=== PATIENT | male | born 1945 | race Caucasian/White ===

== ENCOUNTER 2021-10-05 00:30 | Inpatient (IN) | payer OTHER ==
[2021-10-05] MEDS ORDERED: NA CHLORIDE 0.9% 1,000 ML ONE ×2 (02:12→06:27)
[2021-10-05] MEDS ORDERED: ONDANSETRON 4 MG/2 ML VIAL ONE ×3 (02:12→17:18)
[2021-10-05] MEDS ORDERED: MORPHINE 4 MG/ML SYR ONE (02:12)
[2021-10-05] MEDS ORDERED: FAMOTIDINE 20 MG/2 ML VIAL IV ONE (02:12)
[2021-10-05 02:20] LABS: Absolute Lymphocytes (CBC) 1.3 K/uL (0.7-4.9); Hematocrit 41.5 % (39.6-49.0); Lymphocytes % 12.1 % (15.3-44.8); MPV 7.5 fL (7.6-11.3); RBC Red Blood Cell Count 4.15 M/uL (4.33-5.43)
[2021-10-05 02:27] LABS: Protime INR 1.12
[2021-10-05 02:54] LABS: Albumin 3.4 g/dL (3.4-5.0); Bilirubin Direct 0.2 mg/dL (0-0.2); Bilirubin Total 0.4 mg/dL (0.2-1.0); Magnesium 1.7 mg/dL (1.8-2.4); Potassium 3.5 mmol/L (3.5-5.1); Protein, Total 8.1 g/dL (6.4-8.2); Troponin High Sensitivity 9.6 pg/mL (<58.9)
[2021-10-05] MEDS ORDERED: NA CHLORIDE 0.9% 500 ML ONE (03:38)
[2021-10-05] MEDS ORDERED: MAGNESIUM SULFATE 1 gm IVPB 1 GM/100 ML BAG IV ONE (03:39)
[2021-10-05] MEDS ORDERED: METRONIDAZOLE 500mg IVPB 500 MG/100 ML BAG IV ONE (04:00)
[2021-10-05] MEDS ORDERED: CIPROFLOXACIN 400mg IV 400 MG/200 ML BAG IV ONE (04:00)
--- NOTE | 2021-10-05 05:50 | EDPHYS ---
Physician Documentation [facility] Name: Chantal Fields Age: 76 yrs Sex: Male : 1945 Arrival Date: 10/05/2021 Time: 00:36 Bed 15 Private MD: Vincent Paige ED Physician Matt Bautista HPI: 10/05 01:41 This 76 yrs old Male presents to ER via Ambulatory with complaints of joão Abdominal Pain, Nausea. 01:41 The patient presents to the emergency department with nausea, vomiting, that is joão intermittent. Onset: The symptoms/episode began/occurred 5 day(s) ago. Possible causes: unknown. The symptoms are aggravated by movement, pressure, The symptoms are alleviated by nothing. remaining still. Associated signs and symptoms: Pertinent positives: abdominal pain. Severity of symptoms: At their worst the symptoms were mild moderate in the emergency department the symptoms are unchanged. The patient has not experienced similar symptoms in the past. Historical: - Allergies: 00:50 PENICILLINS; vc1 00:50 niospan; vc1 00:50 Trilipix; vc1 00:50 Livalo; vc1 00:50 Edarbi; vc1 00:50 Aspirin; vc1 00:50 Metoprolol Tartrate; vc1 - Home Meds: 00:50 Levothroid 150 mcg Oral tab 1 tab once daily [Active]; clopidogrel 75 mg oral tab 1 tab vc1 once daily [Active]; Crestor 10 mg oral tab 1 tab once daily [Active]; losartan 50 mg oral tab 1 tab 2 times per day [Active]; fish kam-vmhxw-4-vit C-vit E 2,000-650-12 mg/2.5 gram oral elpk [Active]; nitroglycerin 0.4 mg SL subl 1 tab every 5 minutes [Active]; Co Q-10 200 mg oral cap daily [Active]; cilostazol 50 mg oral tab 1 tab 2 times per day [Active]; isosorbide mononitrate 30 mg Oral Tb24 1 tab twice a day [Active]; bisoprolol fumarate 5 mg oral tab 1 tab once daily [Active]; - PMHx: 00:55 Asbestos; Myocardial infarction; Hiatel Hernia; vc1 - PSHx: 00:55 Cholecystectomy; Cardiac stents; vc1 - Immunization history:: Adult Immunizations up to date, Client reports receiving the 2nd dose of the Covid vaccine, Flu vaccine is up to date. - Social history:: Smoking status: Patient/guardian denies using tobacco, but has a distant history of tobacco abuse. ROS: 01:42 Constitutional: Negative for fever, chills, and weight loss, Eyes: Negative for injury, joão pain, redness, and discharge, ENT: Negative for injury, pain, and discharge, Neck: Negative for injury, pain, and swelling, Cardiovascular: Negative for chest pain, palpitations, and edema, Respiratory: Negative for shortness of breath, cough, wheezing, and pleuritic chest pain, Back: Negative for injury and pain, : Negative for injury, bleeding, discharge, and swelling, MS/Extremity: Negative for injury and deformity, Skin: Negative for injury, rash, and discoloration, Neuro: Negative for headache, weakness, numbness, tingling, and seizure, Psych: Negative for depression, anxiety, suicide ideation, homicidal ideation, and hallucinations, Allergy/Immunology: Negative for hives, rash, and allergies, Endocrine: Negative for neck swelling, polydipsia, polyuria, polyphagia, and marked weight changes, Hematologic/Lymphatic: Negative for swollen nodes, abnormal bleeding, and unusual bruising. 01:42 Abdomen/GI: Positive for abdominal pain, nausea and vomiting, abdominal cramps, of the right upper quadrant and right lower quadrant. Exam: 01:42 Constitutional: This is a well developed, well nourished patient who is awake, alert, joão and in no acute distress. Head/Face: Normocephalic, atraumatic. Eyes: Pupils equal round and reactive to light, extra-ocular motions intact. Lids and lashes normal. Conjunctiva and sclera are non-icteric and not injected. Cornea within normal limits. Periorbital areas with no swelling, redness, or edema. ENT: Nares patent. No nasal discharge, no septal abnormalities noted. Tympanic membranes are normal and external auditory canals are clear. Oropharynx with no redness, swelling, or masses, exudates, or evidence of obstruction, uvula midline. Mucous membranes moist. Neck: Trachea midline, no thyromegaly or masses palpated, and no cervical lymphadenopathy. Supple, full range of motion without nuchal rigidity, or vertebral point tenderness. No Meningismus. Chest/axilla: Normal chest wall appearance and motion. Nontender with no deformity. No lesions are appreciated. Cardiovascular: Regular rate and rhythm with a normal S1 and S2. No gallops, murmurs, or rubs. Normal PMI, no JVD. No pulse deficits. Respiratory: Lungs have equal breath sounds bilaterally, clear to auscultation and percussion. No rales, rhonchi or wheezes noted. No increased work of breathing, no retractions or nasal flaring. Back: No spinal tenderness. No costovertebral tenderness. Full range of motion. Male : Normal genitalia with no discharge or lesions. Skin: Warm, dry with normal turgor. Normal color with no rashes, no lesions, and no evidence of cellulitis. MS/ Extremity: Pulses equal, no cyanosis. Neurovascular intact. Full, normal range of motion. Neuro: Awake and alert, GCS 15, oriented to person, place, time, and situation. Cranial nerves II-XII grossly intact. Motor strength 5/5 in all extremities. Sensory grossly intact. Cerebellar exam normal. Normal gait. Psych: Awake, alert, with orientation to person, place and time. Behavior, mood, and affect are within normal limits. 01:42 Abdomen/GI: Inspection: distension, Palpation: mild abdominal tenderness, moderate abdominal tenderness, in the right upper quadrant, Liver: no appreciated palpable abnormalities, tenderness, that is mild, Hernia: not appreciated. 02:47 ECG was reviewed by the Attending Physician. [facility] Vital Signs: 00:48 BP 164 / 101; Pulse 82; Resp 20; Temp 98; Pulse Ox 94% ; Weight 130.63 kg; Height 6 ft. vc1 2 in. (187.96 cm); Pain 8/10; 02:00 BP 169 / 81; Pulse 70; Resp 16; Pulse Ox 92% on R/A; Pain 0/10; fu 02:41 BP 179 / 85; Pulse 71; Resp 15; Pulse Ox 94% on 3 lpm NC; vc1 03:00 BP 174 / 92; Pulse 71; Resp 16; Pulse Ox 93% on 2 lpm NC; Pain 0/10; fu 05:26 BP 175 / 85; Pulse 72; Resp 19; Pulse Ox 95% on 2 lpm NC; fu 07:00 BP 114 / 97; Pulse 72; Resp 19 S; Pulse Ox 93% on 2 lpm NC; jg9 07:15 BP 160 / 93; Pulse 80; Resp 19; Pulse Ox 93% on 2 lpm NC; jg9 08:00 BP 166 / 97; Pulse 74; Pulse Ox 95% on 2 lpm NC; jg9 00:48 Body Mass Index 36.98 (130.63 kg, 187.96 cm) vc1 MDM: 01:30 Patient medically screened. [facility] 01:44 Differential diagnosis: Nonspecific abd pain, gastritis, cholecystitis, pancreatitis, joão appendicitis, diverticulitis. Data reviewed: vital signs, nurses notes, EMS record, lab test result(s), EKG, radiologic studies, CT scan, plain films. Data interpreted: pvc monitor: rate is 82 beats/min, rhythm is regular, Pulse oximetry: on room air is 94 %. Test interpretation: by ED physician or midlevel provider: ECG, plain radiologic studies. Counseling: I had a detailed discussion with the patient and/or guardian regarding: the historical points, exam findings, and any diagnostic results supporting the discharge/admit diagnosis, the presence of at least one elevated blood pressure reading (>120/80) during this emergency department visit, lab results, radiology results, the need for outpatient follow up. 05:50 Physician consultation: Jose Singh MD was called at 05:50, was contacted at 05:50, [facility] regarding consult, patient's condition, after a discussion of the case, a recommendation for transfer for higher level of care is made. 10/05 01:40 Order name: Basic Metabolic Panel; Complete Time: 03:20 [facility] 10/05 01:40 Order name: CBC with Diff; Complete Time: 02:41 [facility] 10/05 01:40 Order name: LFT's; Complete Time: 03:20 [facility] 10/05 01:40 Order name: Magnesium; Complete Time: 03:20 [facility] 10/05 01:40 Order name: NT PRO-BNP; Complete Time: 03:20 [facility] 10/05 01:40 Order name: PT-INR; Complete Time: 02:41 [facility] 10/05 01:40 Order name: Troponin HS; Complete Time: 03:20 [facility] 10/05 01:40 Order name: Lipase; Complete Time: 03:20 [facility] 10/05 01:40 Order name: SARS-COV-2 RT PCR (Document "Date of Onset" if Symptomatic); Complete Time: [facility] 03:20 10/05 06:37 Order name: Urine Dipstick-Ancillary; Complete Time: 06:54 EDMS 10/05 07:45 Order name: CBC with Automated Diff EDMS 10/05 07:45 Order name: CBC with Automated Diff EDMS 10/05 07:45 Order name: Comprehensive Metabolic Panel EDMS 10/05 07:45 Order name: Comprehensive Metabolic Panel EDMS 10/05 01:40 Order name: XRAY Chest (1 view) [facility] 10/05 03:00 Order name: Abdomen EDMS 10/05 07:45 Order name: Magnesium EDMS 10/05 07:45 Order name: Magnesium EDMS 10/05 07:45 Order name: Phosphorus EDMS 10/05 07:45 Order name: Phosphorus EDMS 10/05 01:40 Order name: EKG; Complete Time: 01:41 [facility] 10/05 01:40 Order name: Cardiac monitoring; Complete Time: 02:24 [facility] 10/05 01:40 Order name: EKG - Nurse/Tech; Complete Time: 02:24 [facility] 10/05 01:40 Order name: IV Saline Lock; Complete Time: 02:24 [facility] 10/05 01:40 Order name: Labs collected and sent; Complete Time: 02:24 [facility] 10/05 01:40 Order name: O2 Per Protocol; Complete Time: 02:24 [facility] 10/05 01:40 Order name: O2 Sat Monitoring; Complete Time: 02:24 [facility] 10/05 01:40 Order name: Urine Dipstick-Ancillary (obtain specimen); Complete Time: 07:05 [facility] 10/05 03:33 Order name: IV Saline Lock - Large Bore; Complete Time: 04:15 [facility] 10/05 07:45 Order name: CONS Physician Consult EDMT 10/05 07:45 Order name: NPO EDMS EC:47 Rate is 66 beats/min. Rhythm is regular. QRS [place] is Normal. NC interval is normal. QRS joão interval is normal. QT interval is normal. No Q waves. T waves are Normal. No ST changes noted. Clinical impression: NSR w/ Non-specific ST/T Changes and No evidence of ischemia. Interpreted by me. Reviewed by me. Administered Medications: 02:23 Drug: morphine 4 mg Route: IVP; Infused Over: 4 mins; Site: right forearm; fu 02:53 Follow up: Response: Pain is decreased fu 02:23 Drug: Zofran (Ondansetron) 4 mg Route: IVP; Site: right forearm; fu 03:23 Follow up: Response: No adverse reaction fu 02:24 Drug: NS 0.9% 1000 ml Route: IV; Rate: 125 ml/hr; Site: right forearm; fu 02:24 Drug: Pepcid (famotidine) 20 mg Route: IVP; Site: right forearm; fu 03:24 Follow up: Response: No adverse reaction fu 03:42 Drug: Magnesium Sulfate 1 grams Route: IVPB; Infused Over: 1 hrs; Site: right forearm; fu 04:58 Follow up: Response: No adverse reaction fu 03:43 Drug: NS 0.9% 500 ml Route: IV; Rate: bolus; Site: right forearm; fu 04:58 Follow up: Response: No adverse reaction; IV Intake: 500ml fu 04:15 Drug: Cipro (ciprofloxacin) 400 mg Volume: 200 ml; Route: IVPB; Infused Over: 60 mins; fu Site: left wrist; 07:29 Follow up: IV Status: Completed infusion; IV Intake: 200ml jg9 04:15 Drug: Flagyl (metroNIDAZOLE) 500 mg Volume: 100 ml; Route: IVPB; Rate: 200 ml/hr; fu Infused Over: 30 mins; Site: left wrist; 04:59 Follow up: Response: No adverse reaction fu 06:20 Drug: Meropenem 1 grams Route: IV; Rate: per protocol; Site: right forearm; fu 09:16 Follow up: IV Status: Completed infusion; IV Intake: 100ml jg9 06:20 Drug: NS 0.9% 1000 ml Route: IV; Rate: 1 bolus; Site: right forearm; fu 09:15 Follow up: IV Status: Completed infusion; IV Intake: 1000ml jg9 Disposition Summary: 10/05/21 07:21 Hospitalization Ordered Hospitalization Status: Inpatient Admission joão Provider: Nita Kelly cha Location: Telemetry/MedSurg (Inpatient) joão Condition: Fair(10/05/21 07:21) joão Problem: new(10/05/21 07:21) joão Symptoms: have improved(10/05/21 07:21) joão Bed/Room Type: Standard joão Room Assignment: joão Diagnosis - Volvulus - cecal(10/05/21 07:21) joão - Abdominal tenderness joão - Nausea(10/05/21 07:21) joão - Acute kidney failure, unspecified(10/05/21 07:21) joão - Other intestinal obstruction(10/05/21 07:21) joão - Pneumonia due to other specified bacteria - left lower lobe,[place] joão Discharge Instructions: - Discharge Summary Sheet jg9 - Abdominal Migraine, Pediatric jg9 - Nausea and Vomiting, Adult jg9 Forms: - Medication Reconciliation Form joão - SBAR form joão Signatures: Dispatcher [employer] EDMS Juan A Mann MD MD cha Umadhay, Felix, RN RN fu Colleen Chen RN RN vc1 Nadia Barr RN jg9 Corrections: (The following items were deleted from the chart) 03:00 01:45 Abdomen Pelvis W Con+CT.RAD.BRZ ordered. EDMT EDMS 05:57 05:49 to [facility] joão joão 06:12 05:57 to [facility] joão joão 07:17 05:49 [facility] joão joão 07:17 05:49 Higher level of care joão joão 07:17 05:49 Fair joão joão 07:17 05:49 new joão joão 07:17 05:49 have improved joão joão 07:17 05:49 Volvulus - Cecal joão joão 07:17 05:49 Abdominal pain, unspecified joão joão 07:17 05:49 Nausea joão joão 07:17 05:57 Acute kidney failure, unspecified joão joão 07:17 05:57 Other intestinal obstruction joão joão 07:17 06:12 to [facility] joão joão 07:17 06:12 Pneumonia, unspecified organism - lingula and left lower lobe joão joão
--- NOTE | 2021-10-05 05:50 | ER ---
Nurse's Notes [facility] Name: Chantal Fields Age: 76 yrs Sex: Male : 1945 Arrival Date: 10/05/2021 Time: 00:36 Bed 15 Private MD: Vincent Paige Diagnosis: Volvulus-cecal;Abdominal tenderness;Nausea;Acute kidney failure, unspecified;Other intestinal obstruction;Pneumonia due to other specified bacteria-left lower lobe,[place]ulia Presentation: 10/05 00:48 Chief complaint: Patient states: "I have been constipated lately I took some milk of vc1 magnesia and went to bed. I had a small bowel movement. When I woke up my stomach hurt extremely bad and I threw up several times.". Coronavirus screen: Vaccine status: Patient reports receiving the 2nd dose of the covid vaccine. Moderna plus 2 boosters At this time, the client does not indicate any symptoms associated with coronavirus-19. Ebola Screen: No symptoms or risks identified at this time. Initial Sepsis Screen: Does the patient meet any 2 criteria? No. Patient's initial sepsis screen is negative. Does the patient have a suspected source of infection? No. Patient's initial sepsis screen is negative. Risk Assessment: Do you want to hurt yourself or someone else? Patient reports no desire to harm self or others. Onset of symptoms is unknown. 00:48 Method Of Arrival: Ambulatory vc1 00:48 Acuity: FLORENTINO 3 vc1 Historical: - Allergies: 00:50 PENICILLINS; vc1 00:50 niospan; vc1 00:50 Trilipix; vc1 00:50 Livalo; vc1 00:50 Edarbi; vc1 00:50 Aspirin; vc1 00:50 Metoprolol Tartrate; vc1 - Home Meds: 00:50 Levothroid 150 mcg Oral tab 1 tab once daily [Active]; clopidogrel 75 mg oral tab 1 tab vc1 once daily [Active]; Crestor 10 mg oral tab 1 tab once daily [Active]; losartan 50 mg oral tab 1 tab 2 times per day [Active]; fish usi-rxrbx-4-vit C-vit E 2,000-650-12 mg/2.5 gram oral elpk [Active]; nitroglycerin 0.4 mg SL subl 1 tab every 5 minutes [Active]; Co Q-10 200 mg oral cap daily [Active]; cilostazol 50 mg oral tab 1 tab 2 times per day [Active]; isosorbide mononitrate 30 mg Oral Tb24 1 tab twice a day [Active]; bisoprolol fumarate 5 mg oral tab 1 tab once daily [Active]; - PMHx: 00:55 Asbestos; Myocardial infarction; Hiatel Hernia; vc1 - PSHx: 00:55 Cholecystectomy; Cardiac stents; vc1 - Immunization history:: Adult Immunizations up to date, Client reports receiving the 2nd dose of the Covid vaccine, Flu vaccine is up to date. - Social history:: Smoking status: Patient/guardian denies using tobacco, but has a distant history of tobacco abuse. Screenin:32 Abuse screen: Denies threats or abuse. Nutritional screening: No deficits noted. fu Tuberculosis screening: No symptoms or risk factors identified. Fall Risk None identified. Assessment: 01:31 General: Appears in no apparent distress. Behavior is calm, cooperative, appropriate fu for age, Denies fever. Pain: Complains of pain in abdomen Pain does not radiate. Pain currently is 8 out of 10 on a pain scale. Neuro: Level of Consciousness is awake, alert, obeys commands, Oriented to person, place, time, situation, Moves all extremities. Gait is steady, Speech is normal, Facial symmetry appears normal. Respiratory: Respiratory effort is even, unlabored, Respiratory pattern is regular. GI: Bowel sounds Abd is soft X 4 quads. 02:40 Reassessment: Patients oxygen saturation dropped to 87% placed on 3L NC increased to vc1 94%, no complaints of shortness of breath. 03:30 Reassessment: No changes from previously documented assessment. Patient and/or family fu updated on plan of care and expected duration. Pain level reassessed. Patient is alert, oriented x 3, equal unlabored respirations, skin warm/dry/pink. 04:00 Reassessment: No changes from previously documented assessment. Patient and/or family fu updated on plan of care and expected duration. Pain level reassessed. Patient is alert, oriented x 3, equal unlabored respirations, skin warm/dry/pink. 04:54 Reassessment: No changes from previously documented assessment. Patient is alert, fu oriented x 3, equal unlabored respirations, skin warm/dry/pink. asleep in bed. 07:00 Reassessment: Patient and/or family updated on plan of care and expected duration. Pain jg9 level reassessed. Patient is alert, oriented x 3, equal unlabored respirations, skin warm/dry/pink. Patient awake in bed no distress has no need at this time, VSS, updated on plan of care. 08:00 Reassessment: Samantha at bedside discussing surgical need, at this time patient is jg9 requesting to be transferred to another faciliy. 08:58 Reassessment: Patient has decided that he wants to stay here to have his jg9 surgery-provider notified. Vital Signs: 00:48 BP 164 / 101; Pulse 82; Resp 20; Temp 98; Pulse Ox 94% ; Weight 130.63 kg; Height 6 ft. vc1 2 in. (187.96 cm); Pain 8/10; 02:00 BP 169 / 81; Pulse 70; Resp 16; Pulse Ox 92% on R/A; Pain 0/10; fu 02:41 BP 179 / 85; Pulse 71; Resp 15; Pulse Ox 94% on 3 lpm NC; vc1 03:00 BP 174 / 92; Pulse 71; Resp 16; Pulse Ox 93% on 2 lpm NC; Pain 0/10; fu 05:26 BP 175 / 85; Pulse 72; Resp 19; Pulse Ox 95% on 2 lpm NC; fu 07:00 BP 114 / 97; Pulse 72; Resp 19 S; Pulse Ox 93% on 2 lpm NC; jg9 07:15 BP 160 / 93; Pulse 80; Resp 19; Pulse Ox 93% on 2 lpm NC; jg9 08:00 BP 166 / 97; Pulse 74; Pulse Ox 95% on 2 lpm NC; jg9 00:48 Body Mass Index 36.98 (130.63 kg, 187.96 cm) vc1 ED Course: 00:36 Patient arrived in ED. am2 00:36 Vincent Paige MD is Private Physician. am2 00:50 Triage completed. vc1 00:55 Arm band placed on right wrist. vc1 01:26 Edd Velásquez, JAMIE is Primary Nurse. fu 01:30 Juan A Mann MD is Attending Physician. joão 01:33 Patient has correct armband on for positive identification. Bed in low position. Call fu light in reach. Pulse ox on. NIBP on. 02:10 Inserted saline lock: 20 gauge in right antecubital area, using aseptic technique. fu Blood collected. 02:10 COVID swab sent to lab. fu 02:30 XRAY Chest (1 view) In Process Unspecified. EDMS 03:43 Abdomen In Process Unspecified. EDMS 04:00 Inserted saline lock: 20 gauge in left wrist, using aseptic technique. fu 05:51 Initiation of transfer with Josephine at [facility]. lp1 05:51 Dr. Mann initiated call for transfer to [facility], spoke to Josephine Raphael. wm 07:[address] Maria the hospitalist telecommunications line installer for [facility] with Dr. Mann for eb patient transfer consultation. 07:18 Nita Kelly MD is Hospitalizing Provider. joão 07:27 transfer cancelled to [facility] due to Dr. Jaime the GI telecommunications line installer for [facility] not eb accepting the patient. per Dr. Maria the hospitalist says Dr. Nicholas says that he would not do anything from a GI stand point. Our surgeon should be able to handle it. 07:49 Attending Physician role handed off by Juan A Mann MD kdr 07:49 Matt Bautista MD is Attending Physician. kdr 07:52 reinitiated the transfer with [facility] at the request of the patient/. eb 08:21 administrative approval given by Yordy Tomas/ patient has been accepted to [facility]/ Dr. Maria has accepted the patient in transfer/ report to be called to [phone]. 08:[address] Hurd ([phone]) patient's doctor with Dr. Bautista for eb patient consultation. 08:49 initiated a transfer with Kishor from the [facility] at the request of Dr akbar Hurd and patient/ per Kishor they will have to decline the patient again due to being at capacity/ they will Let Dr. Hurd know again as well that they still do not have and beds at this time. 09:[address] [facility] at the request of the patient/ patient was advised by akbar Hurd that it would be better for him to stay here instead of being "shuffled" around. Yordy Tomas from the transfer center notified he will notify Dr. Maria. Administered Medications: 02:23 Drug: morphine 4 mg Route: IVP; Infused Over: 4 mins; Site: right forearm; fu 02:53 Follow up: Response: Pain is decreased fu 02:23 Drug: Zofran (Ondansetron) 4 mg Route: IVP; Site: right forearm; fu 03:23 Follow up: Response: No adverse reaction fu 02:24 Drug: NS 0.9% 1000 ml Route: IV; Rate: 125 ml/hr; Site: right forearm; fu 02:24 Drug: Pepcid (famotidine) 20 mg Route: IVP; Site: right forearm; fu 03:24 Follow up: Response: No adverse reaction fu 03:42 Drug: Magnesium Sulfate 1 grams Route: IVPB; Infused Over: 1 hrs; Site: right forearm; fu 04:58 Follow up: Response: No adverse reaction fu 03:43 Drug: NS 0.9% 500 ml Route: IV; Rate: bolus; Site: right forearm; fu 04:58 Follow up: Response: No adverse reaction; IV Intake: 500ml fu 04:15 Drug: Cipro (ciprofloxacin) 400 mg Volume: 200 ml; Route: IVPB; Infused Over: 60 mins; fu Site: left wrist; 07:29 Follow up: IV Status: Completed infusion; IV Intake: 200ml jg9 04:15 Drug: Flagyl (metroNIDAZOLE) 500 mg Volume: 100 ml; Route: IVPB; Rate: 200 ml/hr; fu Infused Over: 30 mins; Site: left wrist; 04:59 Follow up: Response: No adverse reaction fu 06:20 Drug: Meropenem 1 grams Route: IV; Rate: per protocol; Site: right forearm; fu 09:16 Follow up: IV Status: Completed infusion; IV Intake: 100ml jg9 06:20 Drug: NS 0.9% 1000 ml Route: IV; Rate: 1 bolus; Site: right forearm; fu 09:15 Follow up: IV Status: Completed infusion; IV Intake: 1000ml jg9 Medication: 04:57 VIS not applicable for this client. fu Intake: 04:58 IV: 500ml; Total: 500ml. fu 07:29 IV: 200ml; Total: 700ml. jg9 09:15 IV: 1000ml; Total: 1700ml. jg9 09:16 IV: 100ml; Total: 1800ml. jg9 Outcome: 05:49 ER care complete, transfer ordered by . joão 07:21 Decision to Hospitalize by Provider. joão 10:23 Patient left the ED. jg9 Signatures: Dispatcher [employer] EDJuan A Buitrago MD MD cha Rittger, Kevin, MD MD kdr Pena, Laura, RN RN lp1 Alyssa Tomas Felix, RN RN Alisson Mesa Wendy wm Gilmore, Jennifer RN RN jg9 Colleen Chen RN RN vc1 Corrections: (The following items were deleted from the chart) 04:16 04:15 Inserted saline lock: 20 gauge in left wrist, using aseptic technique. [facility]
[2021-10-05] MEDS ORDERED: NA CHLORIDE 0.9% 100 ML ONE (06:27)
[2021-10-05] MEDS ORDERED: Meropenem 1000 MG/VIAL IV ONE (06:27)
[2021-10-05 06:37] LABS: Urine Blood Trace-lysed (Negative); Urine Glucose Negative (Negative); Urine Protein 3+ (Negative); Urine Specific Gravity >=1.030 (1.005-1.030); Urine pH 5.5 (5.0-7.0)
[2021-10-05] MEDS ORDERED: ACETAMINOPHEN 500 MG TAB PO PRN (07:41)
[2021-10-05] MEDS ORDERED: ONDANSETRON 4 MG/2 ML VIAL IV PRN (07:41)
[2021-10-05] MEDS ORDERED: NA CHLORIDE 0.9% 1,000 ML IV SCH (08:00)
[2021-10-05] MEDS ORDERED: CIPROFLOXACIN 400mg IV 400 MG/200 ML BAG IV SCH ×2 (09:00→21:00)
[2021-10-05] MEDS ORDERED: ENOXAPARIN 30 MG/0.3 ML SQ SCH (09:00)
[2021-10-05 09:35] VITALS: BMI 36.9
--- NOTE | 2021-10-05 09:38 | P.HP ---
Certification for Inpatient Patient admitted to: Inpatient (00:48 BP 164 / 101; Pulse 82; Resp 20; Temp 98; Pulse Ox 94% ; Weight 130.63 kg; Height 6 ft. vc1) With expected LOS: >2 Midnights Patient will require the following post-hospital care: None Practitioner: I am a practitioner with admitting privileges, knowledge of patient current condition, hospital course, and medical plan of care. Services: Services provided to patient in accordance with Admission requirements found in Title 42 Section 412.3 of the Code of Federal Regulations Patient History Date of Service: 10/05/21 Reason for admission: Cecal Volvulus History of Present Illness: Mr. Fields is a pleasant 76-year-old male who has a past medical history of coronary artery disease complicated by prior myocardial infarction s/p multiple coronary stents and CABG, peripheral vascular disease, hypertension, dyslipidemia, hypothyroidism, and benign prostatic hyperplasia who presents to [facility] Emergency Department for abdominal pain. He reports that, over the last 4-5 days, he has been experiencing progressively worsening abdominal pain. He states that the pain is generalized, but centered around periumbilical region. He describes the pain as a sharp and nonradiating. Over the last 1-2 days, he has had worsening abdominal distention. He denies any obvious inciting or alleviating factors. He grades the pain a 10/10 in severity. He has tried taking acetaminophen and milk of magnesia, without alleviation of his symptoms. His last bowel movement was two days ago. On review of systems, he reports nausea, but denies any fevers, chills, headaches, dizziness, syncope, weakness, chest pain, palpitations, shortness of breath, wheezing, cough, vomiting, diarrhea, constipation, hematochezia, melena, dysuria, hematuria, myalgia, or any other symptoms. He presented to the Emergency Department for further evaluation. Upon presentation, his vital signs were stable. His laboratory studies were notable for a creatinine of 1.68 (basleline unknown), a glucose of 133, and a magnesium of 1.7. Chest x-ray and CT abdomen/pelvis were performed, but formal reads are pending. There appears to be a cecal volvulus on the CT. There is also concern for a left lower lobe pneumonia on chest x-ray. General Surgery was consulted, and there are plans for surgery today. In the Emergency Department, he was given morphine, ondansetron, famotidine, magnesium sulfate, ciprofloxacin, metronidazole, meropenem, and 2 L normal saline. He was admitted to the General Internal Medicine service for further evaluation. Allergies metoprolol Allergy (Mild, Verified 10/05/21 09:27) Itching aspirin Allergy (Unknown, Verified 10/05/21 09:22) Itching azilsartan [From Edarbi] Allergy (Unknown, Verified 10/05/21 09:22) Itching choline fenofibrate [From Trilipix] Allergy (Unknown, Verified 10/05/21 09:22) Itching Penicillins Allergy (Unknown, Verified 10/05/21 09:22) Itching pitavastatin [From Livalo] Allergy (Unknown, Verified 10/05/21 09:22) Itching niospan Allergy (Unknown, Uncoded 10/05/21 09:22) Itching Home medications list reviewed: Yes Home Medications: Clopidogrel Bisulfate [Plavix] 1 tab PO DAILY 10/05/21 Diphenhydramine HCl [Benadryl Allergy] 1 tab PO PRN 10/05/21 Docusate Sodium 100 mg PO BID 10/05/21 Fish Oil/Dha/Epa [Fish Oil 1,200 mg Fish Oil] 1,400 mg PO DAILY 10/05/21 Isosorbide Mononitrate [Isosorbide Mononitrate ER] 1 tab PO BID 10/05/21 Levothyroxine Sodium [Levothyroxine] 150 mg PO DAILY 10/05/21 Losartan Potassium [Cozaar] 1 tab PO BID 10/05/21 Nitroglycerin 0.4 mg PO PRN PRN 10/05/21 Lorane-3 Fatty Acids [Lorane-3] 900 mg PO DAILY 10/05/21 Rosuvastatin [Crestor*] 1 tab PO DAILY 10/05/21 Simethicone [Gas Relief] 125 mg PO PRN PRN 10/05/21 Ubidecarenone [Co Q-10] 1 cap PO DAILY 10/05/21 bisoproloL fumarate [Zebeta*] 1 tab PO DAILY 10/05/21 cilostazoL [Cilostazol] 1 tab PO BID 10/05/21 - Past Medical/Surgical History Has patient received pneumonia vaccine in the past: Yes (04/27/2010. Prevnar 07/31/2015) Diabetic: Yes -: Coronary artery disease -: Peripheral vascular disease -: Hypertension -: Dyslipidemia -: Benign prostatic hyperplasia -: Heart catheterization (August 2012) -: Coronary artery bypass graft (September 24, 2012) -: Heart catheterization (September 23, 2013) -: Heart catheterization with PCI (March 21, 2014) -: Heart catheterization with PCI (February 12, 2016) -: Heart catheterization (September 23, 2016) -: Colonoscopy (October 05, 2017) -: Cholecystectomy (August 26, 2018) - Family History Family History: Reviewed- Non-Contributory - Social History Smoking Status: Former smoker Alcohol use: No CD- Drugs: No Review of Systems General: Unremarkable Eyes: Unremarkable ENT: Unremarkable Respiratory: Unremarkable Cardiovascular: Unremarkable Gastrointestinal: Nausea, Abdominal Pain, Distention Genitourinary: Unremarkable Musculoskeletal: Unremarkable Integumentary: Unremarkable Neurological: Unremarkable Lymphatics: Unremarkable Physical Examination - Vital Signs Blood Pressure: 175/85 Pulse: 72 Respirations: 19 Pulse Ox (%): 95 - Physical Exam General: Alert, In no apparent distress, Oriented x3 HEENT: Atraumatic, Mucous membr. moist/pink, EOMI, Sclerae nonicteric Neck: Supple, 2+ carotid pulse no bruit, Without JVD or thyroid abnormality Respiratory: Clear to auscultation bilaterally, Normal air movement Cardiovascular: Normal pulses, Regular rate/rhythm, Normal S1 S2, No gallops, No rubs, No murmurs, Edema (2+ bilaterally) Capillary refill: <2 Seconds Gastrointestinal: Hypoactive, No rebound, Distended, Guarding Integumentary: No rashes Neurological: Normal speech, Normal affect - Studies Laboratory Data (last 24 hrs) 10/05/21 02:00: PT 12.4, INR 1.12 10/05/21 02:00: WBC 10.4, Hgb 13.9, Hct 41.5, Plt Count 240 10/05/21 02:00: Sodium 139, Potassium 3.5, BUN 20 H, Creatinine 1.68 H, Glucose 133 H, Magnesium 1.7 L, Total Bilirubin 0.4, AST 14 L, ALT 20, Alkaline Phosphatase 82, Lipase 201 Assessment and Plan - Problems (Diagnosis) (1) Volvulus Current Visit: Yes Status: Acute - Plan # Cecal Volvulus - Admit to Medicine - General Surgery consulted and Dr. Singh notified by Dr. Bautista - recommendations appreciated - Recommends exploratory laparotomy with right hemicolectomy - Continue antibiotics for now - Lactated Ringers' at 100 mL/hr - For pain: - Acetaminophen 650 mg PO q6hr PRN mild-moderate pain - Morphine 2 mg IV q4hr PRN severe pain - For nausea: - Ondansetron 4 mg IV q6hr PRN nausea/vomiting - NPO - Pre-operative labs ordered: - INR = 1.12 - Type & screen - COVID-19 swab = negative # Left lower lung opacity, concern for community-acquired pneumonia There was concern for pneumonia in the ED, for which he received meropenem - He does not report any respiratory symptoms at this time, but is on 2 L nasal cannula for comfort - Chest x-ray report is pending - Continue ciprofloxacin + metronidazole, but hold meropenem for now - Encouraged incentive spirometry # Elevated Creatinine - Acute Kidney Injury vs Chronic Kidney Disease Stage III - Creatinine = 1.68 (baseline creatinine unknown) - Urinalysis = trace blood, proteinuria IV fluids as mentioned above - Monitor creatinine and urine output If worsening, obtain renal ultrasound Renally dose medications # Coronary Artery Disease complicated by prior myocardial infarction s/p multiple coronary stents and CABG # Peripheral Vascular Disease # Hypertension # Dyslipidemia - Hold home clopidogrel, rosuvastatin, losartan, cilostazol, isosorbide mononitrate, bisoprolol while NPO # Hypothyroidism - Hold home levothyroxine while NPO Discharge Plan: Home Plan to discharge in: Greater than 2 days - Advance Directives Does patient have a Living Will: No Does patient have a Durable POA for Healthcare: No - Code Status/Comfort Care Code Status Assessed: Yes Code Status: Full Code Physician Review: Patient Assessed, Agree with Above Assessment and Plan
--- NOTE | 2021-10-05 10:07 | CON ---
Date of Consultation: 10/05/2021 Time Seen: At approximately 7 a.m. Brief History Of Present Illness: The patient is a 76-year-old male, who presents with clare roximately 5-day history of abdominal pain. He states that he has not had similar episodes before in the past. He had noticed the pain got progressively worse over the past few days. He has seen his mixing operator in [facility] yesterday and continued to have pain. He states that he did not b elieve that this was cardiac type pain, which he has experienced before in the past. He noted that h e had some abdominal distention occurring over the past 2-3 days. His last bowel movement was 2 days ago. He states that he has not passed gas or had a bowel movement yesterday or today. Prior to taylor t, he did have small bowel movements and was passing minimal gas. He took some milk of magnesia thin guicho he is simply constipated that did not help his symptoms at all. He has only had 1 episode of na usea, vomiting by his report. He states that since being brought to the ER, his pain got significant ly better after medication was administered, but the reason for his coming to the hospital is progres sive worsening of abdominal pain, primarily in the midline area. Past Medical History: Significant for hypertension, coronary artery disease, asbestosis, myocardial infarction, hiatal hernia. Past Surgical History: Includes cholecystectomy, CABG in 2015, multiple cardiac stents after CABG. He states he has had stent occlusions requiring recent re-intervention with angioplasty and repeat st enting of coronary arteries. His last coronary intervention was several years ago. He is maintained on Plavix currently for blood thinner. Allergies: INCLUDE PENICILLIN, NIASPAN, TRILIPIX, LIVALO, EDARBI, ASPIRIN, METOPROLOL. Home Medications: Include Levothroid, Plavix 75 daily, Crestor, losartan, omega-3 fish oil, nitrogly cerin, Coenzyme Q10, , isosorbide mononitrate, and bisoprolol. Social History: He currently denies smoking. Did have a positive tobacco use history in the past. Denies alcohol or recreational drug use. Review of Systems: Ten-point review of systems other than HPI, he denies. Physical Examination: Vital Signs: At the time of my examination; his blood pressure was 164/101, pulse 82, respiratory ra te 20, temperature 98.0, pulse ox is 96% on room air. General: He is awake, alert, and oriented. Psychiatric: He is appropriate and conversive. HEENT: He is normocephalic. His sclerae are anicteric. His mucous membranes are moist. His oropha rynx is clear. Neck: Supple without JVD. Overall Appearance: He is in no apparent distress. He appears comfortable during the examination. Chest: Normal expansion and excursion. Cardiovascular: Regular rate and rhythm. He has a midline well-healed scar from previous CABG surge ry. Abdomen: Obese, soft with mild midline and right-sided abdominal tenderness. There is tympanic reso nance to his abdomen. There is an umbilical hernia palpable, which is reducible. There is no focal peritonitis. Extremities: No clubbing, cyanosis, or edema in the upper extremities. Lower extremities; he has 1+ edema. Laboratory Data: He had a laboratory exam, which revealed a white blood cell count of 10.4, hemoglob in is 13.9, hematocrit 41.5, platelet count was 240, neutrophils 78%. His PT 12.4, INR 1.12. Sodium 139, potassium 3.5, chloride 105, carbon dioxide 24, BUN 20, creatinine 1.68, glucose is 133, calciu m is 9.1, magnesium 1.7. Total bilirubin 0.4, direct bilirubin 0.2, AST 14, ALT 20, alkaline phospha tase is 82. His lipase is 201. His COVID was negative. He had imaging, which included a CT of the abdomen and pelvis, which was read by the night radiologist as a cecal bascule causing bowel obstruct ion. Assessment And Plan: This is a 76-year-old male, who presents with a cecal volvulus. 1.I have recommended exploratory laparotomy, right hemicolectomy, and indicated procedures. I have explained the risks, benefits, and alternatives of this plan including, but not limited to increased bleeding risks as the patient is currently on a blood thinner, infection, need for further operations , injury to intestines, heart attack, stroke, trouble related to anesthetics, possible need for colos katie creation which can be permanent in some situations, blood clots, and other unforeseen complicati ons. 2.Continue IV fluid hydration. 3.Antibiotic coverage. 4.The patient has requested transfer to [facility] and [facility] [place] or a [facility] area because he feels that he would be better served at a "not so small hospital" as he states he has had a bad experience before at [facility], [place] and [facility] her small facilities before in the past and as such has requested to have surgery at a different faci lity and prefers not to have surgery at this institution. I have explained that we can attempt to in itiate transfer based on his preference; however, I will book the patient for exploratory laparotomy today. I have explained that there was currently a case booked for the same for today and if by the time that case is completed, we cannot have a transfer initiated that I highly have recommended. He agreed to proceed with exploratory laparotomy at this time at this institution. The patient states h e will reconsider at this point, but has requested a transfer as described above to a [facility]. Therefore, I spoke to the ER staff who will initiate attempts to transfer the patient; [facility], if unsuccessful in the next few hours, I have recommended surgery at our institution. Thank you for this interesting consult. CHINYERE/MONTY Voice ID: [id number] Report ID: [id number]
[2021-10-05] MEDS ORDERED: Ringers Lactate 1,000 ML IV ONE (10:49)
[2021-10-05] MEDS ORDERED: ACETAMINOPHEN 325 MG TABLET PO PRN (11:14)
[2021-10-05] MEDS ORDERED: METRONIDAZOLE 500mg IVPB 500 MG/100 ML BAG IV SCH ×3 (12:00→17:00)
[2021-10-05] MEDS ORDERED: Ringers Lactate 1,000 ML IV SCH (12:00)
[2021-10-05] MEDS ORDERED: LIDOCAINE 2% MPF 5 ML VIAL ONE (12:59)
[2021-10-05] MEDS ORDERED: ROCURONIUM 50 MG/5 ML VIAL IV ONE (12:59)
[2021-10-05] MEDS ORDERED: propofoL 200 MG/20 ML VIAL IV ONE (12:59)
[2021-10-05] MEDS ORDERED: FENTANYL CITR 100 MCG/2 ML ONE ×3 (13:00→14:46)
[2021-10-05] MEDS ORDERED: SUCCINYLCHOLINE 20 MG/ML (10 ML) IV ONE (13:07)
[2021-10-05] MEDS ORDERED: BUPIVACAINE 0.25% PF 30 ML VIAL ONE (13:14)
[2021-10-05] MEDS ORDERED: dexAMETHasone 10 MG/ML VIAL ONE (13:56)
[2021-10-05] MEDS ORDERED: LABETALOL 20 MG/4ML SYRINGE IV ONE (14:05)
[2021-10-05] MEDS ORDERED: MORPHINE 10 MG/ML VIAL ONE (15:38)
[2021-10-05] MEDS ORDERED: GLYCOPYRROLATE 0.2 MG/ML SYR ONE ×2 (16:02)
--- NOTE | 2021-10-05 16:07 | P.OP ---
Preoperative diagnosis: Cecal Bascule Volvulus Postoperative diagnosis: Cecal Bascule Volvulus Primary procedure: Exploratory Laparotomy Secondary procedure: RIGHT Hemicolectomy with primary ileo-colic anastamosis Anesthesia: GETA Estimated blood loss: 150cc Specimen: RIGHT colon Findings: Cecal Volvulus, multiple ventral abdominal hernias with adipose, adhesions Complications: None Drain(s): Nasogastric, Urinary catheter Transferred to: Recovery Room Condition: Good
[2021-10-05] MEDS ORDERED: NEOSTIGMINE 1 MG/ML -10 ML VIAL ONE (16:17)
[2021-10-05] MEDS: HYDROMORPHONE HCL 1 MG/ML INJ ONE ×2 (16:24→16:30)
[2021-10-05] MEDS ORDERED: GLUCAGON 1 MG/VIAL IM PRN (16:27)
[2021-10-05] MEDS ORDERED: D50W 25 GM/50 ML SYRINGE IV PRN (16:27)
[2021-10-05] MEDS: LABETALOL 20 MG/4ML SYRINGE IV ONE ×4 (16:30→17:16)
[2021-10-05] MEDS: INSULIN -REGULAR HUMAN 50 UNIT/0.5 ML ML SQ SCH ×2 (16:30→21:00)
[2021-10-05] MEDS ORDERED: HYDROMORPHONE HCL 1 MG/ML INJ ONE (17:00)
--- NOTE | 2021-10-05 17:30 | RAD REPORT ---
EXAM DESCRIPTION: RAD - Abdomen 1 View (KUB) - 10/05/2021 5:19 pm CLINICAL HISTORY: s/p NGT placement COMPARISON: Abdomen Pelvis Wo Contrast dated 10/05/2021 FINDINGS: The NG tube likely terminates in the patient's hiatal hernia above the diaphragm. Sternoto my. IMPRESSION: The NG tube tip terminates in the gastric portion of the patient's hiatal hernia, above the diaphragm.
[2021-10-05] MEDS: Levofloxacin500mg IV 500 MG/100 ML BAG IV SCH (17:51)
[2021-10-05] MEDS: D5.45NS W/KCL 20MEQ 1,000 ML IV SCH (17:51)
[2021-10-05] MEDS: METRONIDAZOLE 500mg IVPB 500 MG/100 ML BAG IV SCH (18:30)
--- NOTE | 2021-10-05 19:58 | RAD REPORT ---
EXAM DESCRIPTION: CT - Abdomen Pelvis Wo Contrast - 10/05/2021 7:17 am CLINICAL HISTORY: 76 years Male Abdominal pain, acute, nonlocalized TECHNIQUE: Non contrast CT of the abdomen and pelvis with coronal and sagittal reformats. All CT sca ns at this facility use dose modulation, iterative reconstruction, and/or weight based dosing when ap propriate to reduce radiation dose to as low as reasonably achievable. COMPARISON: None. FINDINGS: Lower chest: Incompletely visualized patchy groundglass opacities in the lingula and left lower lobe. Moderate sized hiatal hernia. Abdomen/Pelvis: Liver: Unremarkable. Gallbladder: Status post cholecystectomy. Pancreas: Within normal limits. Spleen: Calcified granulomas are present. Kidney: No stone or hydronephrosis. Bilateral renal cysts, the largest is on the left measuring 3.6 x 3.4 cm. Adrenal glands: Within normal limits. Vascular structures: Mild atherosclerotic calcification of the aorta and its major branches. Bowel: Cecum is folded anteriorly and superiorly with resulting distention and air-fluid levels. Low Diverticulosis without inflammatory changes. Appendix: Normal. Peritoneum: No free fluid or free air. Lymph Nodes: No lymphadenopathy. Reproductive: Unremarkable. Urinary bladder: Unremarkable. Osseous structures: Multilevel degenerative changes. Soft tissues: Fat-containing left inguinal hernia. IMPRESSION: 1. 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 2. Additional findings as above. THIS REPORT CONTAINS FINDINGS THAT MAY BE CRITICAL TO PATIENT CARE: The findings were verbally discus sed via telephone conference with Juan A Mann MD on 10/05/2021 at 5:44 AM CDT. Electronically signed by: Giovanny Magaña MD 10/05/2021 5:48 AM CDT Due to temporary technical issues with the PACS/Fluency reporting system, reports are being signed by the in house radiologists without review as a courtesy to insure prompt reporting. The interpreting radiologist is fully responsible for the content of the report.
--- NOTE | 2021-10-05 21:20 | RAD REPORT ---
EXAM DESCRIPTION: RAD - Chest Single View - 10/05/2021 2:28 am CLINICAL HISTORY: ABDOMINAL DISTENTION COMPARISON: None. TECHNIQUE: XR CHEST 1 VIEW 10/05/2021 1:40 AM CDT FINDINGS: The heart is mildly enlarged. Sternotomy was performed. There is vague left basilar airspa ce disease. There may be a small left pleural effusion. There is no pneumothorax. There are no acute osseous findings. IMPRESSION: Possible left basilar pneumonia. Electronically signed by: Rodger Abad MD 10/05/2021 4:13 AM CDT Due to temporary technical issues with the PACS/Fluency reporting system, reports are being signed by the in house radiologists without review as a courtesy to insure prompt reporting. The interpreting radiologist is fully responsible for the content of the report.
[2021-10-06] MEDS: HYDROMORPHONE HCL 1 MG/ML INJ IV PRN ×4 (00:09→20:35)
[2021-10-06] MEDS: METRONIDAZOLE 500mg IVPB 500 MG/100 ML BAG IV SCH ×4 (00:09→17:02)
--- NOTE | 2021-10-06 02:15 | OP ---
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 Procedures Performed: 1.Exploratory laparotomy. 2.Right hemicolectomy with primary ileocolic anastomosis. 3.Intraabdominal adhesiolysis. 4.Primary abdominal closure. Estimated Blood Loss: 150 cc. Specimen: Right colon. Findings: 1.A large cecal bascule type volvulus with severe dilation of the colon to almost 15 cm. 2.Multiple ventral abdominal hernias containing adipose tissue. 3.Significant intraabdominal adhesions, particularly in the right upper quadrant as well as in the r ight lower quadrant. Complications: None immediate. Drains: Nasogastric and urinary catheter. Disposition: The patient transferred to recovery room in good condition. Procedure In Detail: After informed consent was obtained, the patient was prepped and draped in the usual sterile fashion. After adequate anesthesia was achieved, I made a midline laparotomy incision through an upper midline incision down through subcutaneous tissues with a 10 blade extending just be low the umbilicus. Electrocautery was used to dissect down through subcutaneous fat. I encountered multiple large perforating blood vessels in the adipose tissue, which were significantly pressurized, consistent with some degree of venous hypertension. These were ligated using the LigaSure device as they were quite large and under significant pressure when they were encountered incidentally. All o f these were controlled prior to entry into the abdomen. The anterior fascia was appreciated and ope mindy with electrocautery down to expose the peritoneum. The peritoneum was grasped, elevated and kenny ply entered with Metzenbaum scissors. I then completed the abdominal laparotomy incision under direc t visualization. At this point, I was encountered by the patient's enlarged dilated cecum. It had a n orientation consistent with a cecal volvulus. There was significant scar tissue and adhesions impi nging upon the cecum, keeping it in this position. There were various fibrous bands, which were take n down using the LigaSure device to allow for mobilization and delivery of the cecum into the midline . After this was performed using the LigaSure device, I proceeded to take down the white line of Karlie dt using electrocautery up to and around the hepatic flexure. I mobilized the colon around the hepat ic flexure to allow for appropriate anastomosis. At this point, after mobilizing the colon on the la teral aspect, I found an appropriate distal margin for the colon resection. I created a mesenteric w indow at this point using electrocautery. WIL 60 blue load was fired across the colon with good appr oximation of the tissues. I then proceeded to take the mesentery down with the LigaSure device, cont rolling bleeding quite effectively at this point. I then proceeded to mobilize the appendix, which w as fixed within the pelvis as well using a combination of blunt dissection as well as electrocautery. After mobilizing the appendix, I used this to help manipulate the colon as well and continue taking adhesions down including small bowel adhesions from the distal ileum, not the terminal ileum directl y. After the small bowel was mobilized at this point, I found an appropriate site for resection near the terminal ileum. Once again, a mesenteric window was created and the WIL 60 blue load was once a gain fired across this with good approximation of tissues. I proceeded to take the mesentery down sl ightly and I had some concern about possible ischemia to the remaining distal ileum and as such I opt ed to take a small additional segment of small bowel to ensure good vascularity for the anastomosis. As such, a mesenteric window was created approximately 3 cm to 4 cm proximal to the previous resecti on line. A mesenteric window was created once again with electrocautery and the WIL blue 60 was fire d once again across the distal small bowel at this point. Less than 10 cm in total of small bowel wa s removed throughout the procedure. At this point, the LigaSure device was used to take the mesenter y down following close to the edge of the colon and eventually the specimen was removed and sent off for pathologic examination without any spillage or leakage throughout. I then copiously irrigated th e patient's abdomen. We changed our gloves and proceeded to irrigate the patient's abdomen copiously in preparation for the anastomosis. At this point, I placed the small bowel and the residual colon in a [id number] orientation securing the proximal and distal aspect of the antimesenteric border of the small bowel to the tenia. I secured these with 2-0 nylon sutures in a proximal and distal aspec t to allow for the anastomosis to be created. At this point, a sterile protective field was brought around to prevent spillage of intestinal contents and at this point, I created an electrocautery ente rotomy into the small bowel. I then expanded it and inspected the lumen. The mucosa was pink and vi able without any hemorrhage. I then advanced the WIL 60 stapler into this lumen and proceeded to foc us on the colon as well at this point. I then created an enterotomy in the colon along the taenia in a similar fashion with electrocautery and dilated this with a hemostat, inspected the lumen and foun d the mucosa to be pink and viable. No bleeding was evident and I then placed the next component of the WIL stapler into the common channel, aligned it and fired the stapler through the common channel, creating a common channel. Stapler was then removed. I inspected the lumen and found it to be jameson nt and intact without any hemostatic maneuvers required. I then proceeded to close the defect with a 2-0 PDS suture in a John running suture. After this was secured, I then imbricated a second laye r closure using 3-0 silk sutures in an interrupted fashion in the Lembert type suture over the suture line. I then palpated the common channel and found it to be patent and at this point, the abdomen w as copiously irrigated once again and suctioned out until dry. We once again changed our gloves at t his point and proceeded to close the mesenteric defect using a 3-0 Vicryl suture in a running fashion . The abdomen was copiously irrigated once again, suctioned out until completely dry and no addition al hemostat was required. The omentum was then pulled down to protect the anastomosis and wrapped ar ound into the pelvis. After running the small bowel from the anastomosis to the ligament of Treitz, no small bowel defects were appreciated. I inspected the liver and this had a somewhat steatotic clare earance, but otherwise had no obvious gross abnormalities. I palpated the stomach and I was unable t o position the NG tube at the time of surgery as the patient has a fairly sizable hiatal hernia and a s such, we opted to close the patient's abdomen at this point. I then proceeded to place the abdomin al FISH in place and ran a #1 looped PDS suture in a running fashion to close the abdominal fascia an d the abdominal compartment en bloc with good apposition of tissues. I placed an additional securing reinforcing stitch in a [id number] at the inferior aspect/inferior pole of incision with #1 Heriberto ryl, after the FISH was removed and the suture was secured and tied down at this point. The abdomen was then palpated and had no defects at this point and was closed with good apposition. I then irrig ated the skin and subcutaneous fat and closed it with interrupted nati and a sterile dressing was placed over top. The patient tolerated the procedure well without evidence of any complication and t ransferred back in good condition. All counts were correct at the end of the case. CHINYERE/MONTY Voice ID: [id number] Report ID: [id number]
[2021-10-06] MEDS: D5.45NS W/KCL 20MEQ 1,000 ML IV SCH ×3 (04:36→17:00)
[2021-10-06 05:14] LABS: Absolute Lymphocytes (CBC) 0.9 K/uL (0.7-4.9); Hematocrit 39.8 % (39.6-49.0); Lymphocytes % 7.3 % (15.3-44.8); MPV 7.6 fL (7.6-11.3); RBC Red Blood Cell Count 3.94 M/uL (4.33-5.43)
[2021-10-06 05:35] LABS: Albumin 2.5 g/dL (3.4-5.0); Bilirubin Total 0.6 mg/dL (0.2-1.0); Magnesium 1.8 mg/dL (1.8-2.4); Phosphorus 1.5 mg/dL (2.5-4.9); Potassium 4.5 mmol/L (3.5-5.1); Protein, Total 6.9 g/dL (6.4-8.2)
[2021-10-06] MEDS: INSULIN -REGULAR HUMAN 50 UNIT/0.5 ML ML SQ SCH ×4 (07:30→20:34)
[2021-10-06] MEDS: ENOXAPARIN 40 MG/0.4 ML SQ SCH (08:54)
--- NOTE | 2021-10-06 11:11 | P.PN ---
Subjective Date of Service: 10/06/21 Chief Complaint: Cecal Volvulus Subjective: Improving (patient feels better, using incentive spirometry, not ambulatory, requests plunkett remain in place.) Physical Examination - Vital Signs Temperature: 97.4 F Blood Pressure: 145/70 Pulse: 83 Respirations: 16 Pulse Ox (%): 94 - Physical Exam General: Alert, In no apparent distress, Cooperative Respiratory: Clear to auscultation bilaterally, Diminished (IS ~ 1500cc) Cardiovascular: Regular rate/rhythm Gastrointestinal: Other (soft, mild appropriate TTP, ND, incision clean with nati in place. abdominal binder in place) Neurological: Normal speech Assessment And Plan - Current Problems (Diagnosis) (1) S/P right hemicolectomy Current Visit: Yes Status: Acute Plan: Gen: continue current pain regime with dilaudid CVS: continue current IV Hydration Pulm: incentive spirometry Q15 min with goal of 15cc/kg, respiratory therapy consulted GI: serial exams, nati out in 2 weeks, continue abdominal binder, patient has multiple ventral hernias, keep covered and change dressings daily FEN: continue IV hydration , electrolyte replacement protocol, will likely clamp trial NGT and DC soon then initiate feedings, patient has hiatal hernia where the NGT remains Renal: DC plunkett in AM, I have recommended removal today, patient requested one more day ID: continue antibiotic coverage with levaquin / flagyl. Prophylaxis: lovenox, SCD, ambulate with assist Placement: PT consulted for ambulation Endo: continue insulin sliding scale Physician Review: Patient Assessed, Agree with Above Assessment and Plan
--- NOTE | 2021-10-06 15:06 | P.PN ---
Subjective Date of Service: 10/06/21 Subjective: No new changes, No C/O voiced, Improving Patient was taken to the OR yesterday and had a hemicolectomy with anastomosis. Patient is doing well postoperatively. Still not moving any air at this time but symptoms are improving. Review of Systems 10-point ROS is otherwise unremarkable Physical Examination - Vital Signs Temperature: 97.9 F Blood Pressure: 154/64 Pulse: 83 Respirations: 16 Pulse Ox (%): 93 - Physical Exam General: Alert, In no apparent distress, Oriented x3, Other (NGT) HEENT: Atraumatic, PERRLA, EOMI Neck: Supple, JVD not distended Respiratory: Clear to auscultation bilaterally, Normal air movement Cardiovascular: Regular rate/rhythm, Normal S1 S2, No murmurs Gastrointestinal: Soft and benign, Non-distended, Other (incision is C/D/I), Absent bowel sounds, Tenderness Musculoskeletal: No clubbing, No swelling, No tenderness Neurological: Sensation intact, Cranial nerves 3-12 intact - Studies Medications List Reviewed: Yes Assessment & Plan - Problems (Diagnosis) (1) S/P right hemicolectomy Current Visit: Yes Status: Acute (2) Volvulus Current Visit: Yes Status: Acute - Plan Plan: 1. Continue with NG tube to suction 2. IV hydration 3. Pain control 4. Physical therapy evaluation 5. Strict blood pressure and blood sugar control 6. GI DVT prophylaxis Discharge Plan: Home Plan to discharge in: Greater than 2 days - Advance Directives Does patient have a Living Will: No Does patient have a Durable POA for Healthcare: No - Code Status/Comfort Care Code Status: Full Code Physician Review: Patient Assessed, Agree with Above Assessment and Plan Critical Care: No Time Spent Managing PTS Care (In Minutes): 35
[2021-10-06] MEDS ORDERED: PNEUMOCOCCAL VACCINE 0.5 ML IMVAC ONE (16:00)
[2021-10-06] MEDS: Levofloxacin500mg IV 500 MG/100 ML BAG IV SCH (16:20)
[2021-10-06] MEDS ORDERED: MAGNESIUM SULFATE 1 gm IVPB 1 GM/100 ML BAG IV ONE (17:07)
[2021-10-07] MEDS: METRONIDAZOLE 500mg IVPB 500 MG/100 ML BAG IV SCH ×4 (00:56→17:10)
[2021-10-07] MEDS: D5.45NS W/KCL 20MEQ 1,000 ML IV SCH ×4 (00:56→20:55)
[2021-10-07 04:47] LABS: Absolute Lymphocytes (CBC) 1.2 K/uL (0.7-4.9); Hematocrit 37.4 % (39.6-49.0); Lymphocytes % 10.4 % (15.3-44.8); MCV 98.8 fL (80-100); MPV 7.3 fL (7.6-11.3); RBC Red Blood Cell Count 3.79 M/uL (4.33-5.43)
[2021-10-07 05:02] LABS: Albumin 2.4 g/dL (3.4-5.0); Bilirubin Total 0.5 mg/dL (0.2-1.0); Potassium 3.9 mmol/L (3.5-5.1); Protein, Total 6.6 g/dL (6.4-8.2)
[2021-10-07] MEDS: HYDROMORPHONE HCL 1 MG/ML INJ IV PRN (05:18)
[2021-10-07] MEDS: INSULIN -REGULAR HUMAN 50 UNIT/0.5 ML ML SQ SCH ×4 (07:30→20:44)
[2021-10-07] MEDS ORDERED: LABETALOL 20 MG/4ML SYRINGE IV PRN (07:43)
[2021-10-07] MEDS ORDERED: D10W 125 ML IV PRN (07:51)
[2021-10-07] MEDS: ENOXAPARIN 40 MG/0.4 ML SQ SCH (08:16)
--- NOTE | 2021-10-07 13:37 | P.PN ---
Subjective Date of Service: 10/07/21 Chief Complaint: Cecal Volvulus Subjective: Improving (no acute issues, ambulatory, pain well controlled) Physical Examination - Vital Signs Temperature: 96.9 F Blood Pressure: 176/81 Pulse: 93 Respirations: 18 Pulse Ox (%): 91 - Physical Exam General: Alert, In no apparent distress, Obese, Other (combative and argumentative) HEENT: Mucous membr. moist/pink Respiratory: Clear to auscultation bilaterally, Other (incentive spirometry 1500cc) Cardiovascular: No edema, Normal pulses, Regular rate/rhythm Gastrointestinal: Other (soft, mild appropriate TTP, ND, no rebound, no guarding, nati in place, clean and dry incision) Integumentary: No rashes, No breakdown Neurological: Normal speech - Studies Medications List Reviewed: Yes Assessment And Plan - Current Problems (Diagnosis) (1) S/P right hemicolectomy Current Visit: Yes Status: Acute Plan: Gen: continue current pain regime with dilaudid CVS: continue current IV Hydration Pulm: incentive spirometry Q15 min with goal of 15cc/kg, respiratory therapy consulted GI: serial exams, nati out in 2 weeks, continue abdominal binder, patient has multiple ventral hernias, keep covered and change dressings daily FEN: continue IV hydration , electrolyte replacement protocol, clamp trial NGT and DC soon if tolearted then initiate feedings, patient has hiatal hernia where the NGT remains Renal: DC plunkett today, adequate urine output ID: continue antibiotic coverage with levaquin / flagyl. Prophylaxis: lovenox, SCD, ambulate with assist Placement: PT consulted for ambulation Endo: continue insulin sliding scale Physician Review: Patient Assessed, Agree with Above Assessment and Plan
[2021-10-07] MEDS ORDERED: PHENOL 1.4% ORAL SPRAY 180ML MM PRN (13:41)
--- NOTE | 2021-10-07 14:08 | P.PN ---
Subjective Date of Service: 10/07/21 Chief Complaint: Cecal Volvulus Subjective: No new changes (NG tube in place. Abdominal pain gradually improving. Requesting Baltazar catheter be removed.) Review of Systems General: Unremarkable Eyes: Unremarkable ENT: Unremarkable Respiratory: Unremarkable Cardiovascular: Unremarkable Gastrointestinal: Nausea, Abdominal Pain, Distention Genitourinary: Unremarkable Musculoskeletal: Unremarkable Integumentary: Unremarkable Neurological: Unremarkable Physical Examination - Vital Signs Temperature: 96.9 F Blood Pressure: 176/81 Pulse: 93 Respirations: 18 Pulse Ox (%): 91 - Physical Exam General: Alert, In no apparent distress, Oriented x3 HEENT: Atraumatic, Other (NG tube in place with brown gastric output) Neck: Without JVD or thyroid abnormality Respiratory: Clear to auscultation bilaterally, Normal air movement Cardiovascular: Normal pulses, Regular rate/rhythm, No gallops, No rubs, No murmurs Gastrointestinal: Hypoactive, No tenderness, No rebound, No guarding Musculoskeletal: No clubbing, No swelling Integumentary: No rashes Neurological: Normal speech, Normal tone, Normal affect - Studies Medications List Reviewed: Yes Assessment And Plan - Current Problems (Diagnosis) (1) Volvulus Current Visit: Yes Status: Acute - Plan # Cecal Volvulus s/p Right Hemicolectomy - Post-op day #2 - General Surgery consulted and spoke with Dr. Singh - recommendations appreciated - Baltazar catheter removed today - Plans to clamp NG tube - if no output, nausea/vomiting, or worsening abdominal pain within 6 hours, plan is to DC NG tube and start clear liquid diet - Continue antibiotics for now - D5W + 1/2 NS at 125 mL/hr - Continue pain and nausea symptomatic management # Left lower lung opacity, concern for community-acquired pneumonia There was concern for pneumonia in the ED, for which he received meropenem - He does not report any respiratory symptoms at this time, but is on 2 L nasal cannula for comfort - Continue levofloxacin - Encouraged incentive spirometry # Hypertensive Urgency - Started PRN labetalol for SBP > 160 mmHg # Acute Kidney Injury, improving - Creatinine = 1.68 -> 1.30 - Urinalysis = trace blood, proteinuria IV fluids as mentioned above - Monitor creatinine and urine output If worsening, obtain renal ultrasound Renally dose medications # Coronary Artery Disease 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
[2021-10-07] MEDS: Levofloxacin500mg IV 500 MG/100 ML BAG IV SCH (15:58)
[2021-10-07] MEDS ORDERED: NITROGLYCERIN 0.4 MG/TAB SL PRN (20:07)
[2021-10-07] MEDS ORDERED: SIMETHICONE 125 MG TAB PO PRN (20:07)
[2021-10-07] MEDS: ISOSORBIDE MONO SR 30 MG TAB PO SCH (20:52)
[2021-10-07] MEDS: LOSARTAN POTASSIUM 50 MG TABLET PO SCH (20:52)
[2021-10-07] MEDS: DOCUSATE NA 100 MG CAP PO SCH (20:52)
[2021-10-08] MEDS: METRONIDAZOLE 500mg IVPB 500 MG/100 ML BAG IV SCH ×4 (00:13→17:00)
[2021-10-08 04:14] LABS: Absolute Lymphocytes (CBC) 1.3 K/uL (0.7-4.9); Hematocrit 36.3 % (39.6-49.0); Lymphocytes % 11.6 % (15.3-44.8); MPV 7.6 fL (7.6-11.3); RBC Red Blood Cell Count 3.63 M/uL (4.33-5.43)
[2021-10-08 04:22] LABS: Phosphorus 1.1 mg/dL (2.5-4.9); Potassium 4.1 mmol/L (3.5-5.1)
[2021-10-08] MEDS: POTASS/SODIUM PHOSPHATE 1 PKT POWD.PACK PO SCH ×4 (05:00→07:00)
[2021-10-08] MEDS: D5.45NS W/KCL 20MEQ 1,000 ML IV SCH ×2 (06:00→17:06)
[2021-10-08] MEDS: INSULIN -REGULAR HUMAN 50 UNIT/0.5 ML ML SQ SCH ×4 (07:30→20:13)
--- NOTE | 2021-10-08 08:04 | EKG ---
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
[2021-10-08] MEDS ORDERED: POTASSIUM PHOS IN 0.9 % NACL 15 MMOL/250 ML BAG IV ONE (09:00)
[2021-10-08] MEDS: ROSUVASTATIN 10 MG TAB PO SCH (09:00)
[2021-10-08] MEDS: LOSARTAN POTASSIUM 50 MG TABLET PO SCH ×2 (09:35→20:14)
[2021-10-08] MEDS: ENOXAPARIN 40 MG/0.4 ML SQ SCH (09:35)
[2021-10-08] MEDS: ISOSORBIDE MONO SR 30 MG TAB PO SCH ×2 (09:35→20:14)
[2021-10-08] MEDS: DOCUSATE NA 100 MG CAP PO SCH ×2 (09:35→20:16)
[2021-10-08] MEDS: CLOPIDOGREL 75 MG TABLET PO SCH (09:35)
[2021-10-08] MEDS: LEVOTHYROXINE SOD 0.075 MG TAB PO SCH (09:40)
[2021-10-08] MEDS: BISOPROLOL 5 MG TABLET PO SCH (09:41)
--- NOTE | 2021-10-08 16:56 | P.PN ---
Subjective Date of Service: 10/08/21 Chief Complaint: Cecal Volvulus He did well overnight with the clamping trial and NG tube was removed. However, following administration of potassium replacement, he had 1 episode of emesis. This morning he reports that he is passing flatus, but has not had a bowel movement yet. Review of Systems General: Unremarkable Eyes: Unremarkable ENT: Unremarkable Respiratory: Unremarkable Cardiovascular: Unremarkable Gastrointestinal: Nausea, Vomiting, Abdominal Pain Genitourinary: Unremarkable Musculoskeletal: Unremarkable Integumentary: Unremarkable Neurological: Unremarkable Physical Examination - Vital Signs Temperature: 97.1 F Blood Pressure: 159/73 Pulse: 68 Respirations: 18 Pulse Ox (%): 95 - Physical Exam General: Alert, In no apparent distress, Oriented x3 HEENT: Atraumatic, Mucous membr. moist/pink Neck: Supple, Without JVD or thyroid abnormality Respiratory: Clear to auscultation bilaterally Cardiovascular: Regular rate/rhythm, Normal S1 S2, No gallops, No rubs, No murmurs Gastrointestinal: Hypoactive, Non-distended, No rebound, No guarding, Tenderness Musculoskeletal: No clubbing, No swelling Integumentary: No rashes Neurological: Normal speech, Normal tone, Normal affect - Studies Medications List Reviewed: Yes Assessment And Plan - Current Problems (Diagnosis) (1) Volvulus Current Visit: Yes Status: Acute - Plan # Cecal Volvulus s/p Right Hemicolectomy - Post-op day #3 - General Surgery consulted and spoke with Dr. Singh - recommendations appreciated - NG tube removed yesterday, but one episode of vomiting after potassium replacement - Remain on clear liquid diet for now and advance as tolerated - Continue antibiotics for now - D5W + 1/2 NS at 125 mL/hr - Continue pain and nausea symptomatic management # Left lower lung opacity, concern for community-acquired pneumonia There was concern for pneumonia in the ED, for which he received meropenem - He does not report any respiratory symptoms at this time, but is on 2 L nasal cannula for comfort - Continue levofloxacin - Encouraged incentive spirometry # Hypertensive Urgency - Resume home meds - PRN labetalol for SBP > 160 mmHg # Acute Kidney Injury, improving - Creatinine = 1.68 -> 1.30 -> 1.15 - Urinalysis = trace blood, proteinuria IV fluids as mentioned above - Monitor creatinine and urine output If worsening, obtain renal ultrasound Renally dose medications # Coronary Artery Disease 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
[2021-10-08] MEDS: Levofloxacin500mg IV 500 MG/100 ML BAG IV SCH (17:00)
[2021-10-09] MEDS: METRONIDAZOLE 500mg IVPB 500 MG/100 ML BAG IV SCH ×3 (00:37→13:07)
[2021-10-09] MEDS: D5.45NS W/KCL 20MEQ 1,000 ML IV SCH (00:42)
[2021-10-09 03:54] LABS: Absolute Lymphocytes (CBC) 1.3 K/uL (0.7-4.9); Hematocrit 35.9 % (39.6-49.0); Lymphocytes % 13.8 % (15.3-44.8); MCV 99.9 fL (80-100); MPV 7.6 fL (7.6-11.3); RBC Red Blood Cell Count 3.59 M/uL (4.33-5.43)
[2021-10-09 04:10] LABS: Magnesium 1.9 mg/dL (1.8-2.4); Phosphorus 1.3 mg/dL (2.5-4.9); Potassium 3.6 mmol/L (3.5-5.1)
[2021-10-09] MEDS: LEVOTHYROXINE SOD 0.075 MG TAB PO SCH (05:59)
[2021-10-09] MEDS: INSULIN -REGULAR HUMAN 50 UNIT/0.5 ML ML SQ SCH ×2 (07:30→11:30)
[2021-10-09] MEDS: DOCUSATE NA 100 MG CAP PO SCH (07:43)
[2021-10-09] MEDS: ROSUVASTATIN 10 MG TAB PO SCH (07:44)
[2021-10-09] MEDS ORDERED: POTASSIUM PHOS IN 0.9 % NACL 15 MMOL/250 ML BAG IV ONE (08:00)
[2021-10-09] MEDS: ENOXAPARIN 40 MG/0.4 ML SQ SCH (08:34)
[2021-10-09] MEDS: LOSARTAN POTASSIUM 50 MG TABLET PO SCH (08:34)
[2021-10-09] MEDS: CLOPIDOGREL 75 MG TABLET PO SCH (08:34)
[2021-10-09] MEDS: BISOPROLOL 5 MG TABLET PO SCH (08:34)
[2021-10-09] MEDS: ISOSORBIDE MONO SR 30 MG TAB PO SCH (08:34)
[2021-10-09 08:44] VITALS: O2SAT 95
[2021-10-09 12:04] VITALS: BP 144/66; TEMP 97.3
--- NOTE | 2021-10-09 14:02 | P.DS ---
Admission Date: 10/05/21 Discharge Date: 10/09/21 Disposition: ROUTINE DISCHARGE Discharge Condition: GOOD Reason for Admission: Cecal Volvulus Consultations: 1. General Surgery Procedures: 10/05/2021 - Right Hemicolectomy with primary Ileocolic Anastamosis - Problems (1) Volvulus Current Visit: Yes Status: Acute (2) Coronary artery disease Current Visit: Yes Status: Acute (3) Peripheral vascular disease Current Visit: Yes Status: Acute (4) Dyslipidemia Current Visit: Yes Status: Acute (5) Hypertension Current Visit: Yes Status: Acute (6) Hypothyroidism Current Visit: Yes Status: Acute (7) S/P right hemicolectomy Current Visit: Yes Status: Acute Hospital Course: Mr. Chantal Fields is a pleasant 76-year-old male who has a past medical history of coronary artery disease complicated by prior myocardial infarction s/p multiple coronary stents and CABG, peripheral vascular disease, hypertension, dyslipidemia, hypothyroidism, and benign prostatic hyperplasia who was admitted to the [facility] on 10/05/2021 for abdominal pain. Upon presentation, he was found to have findings concerning for a bowel obstruction/cecal volvulus. General Surgery was consulted, and Dr. Singh performed a right hemicolectomy with primary ileo-colic anastamosis. Postopera tively, he did fairly well and his diet was advanced slowly. He had one episode of emesis immediately following potassium replacement; however, he passed the nasogastric tube clamping trial and the tube was removed. He was then started on clear liquid diet and advanced to regular diet without any abdominal pain, nausea, or vomiting. He has been passing flatus and having bowel movements for the last 2 days. He is eager for discharge home and has been cleared by General Surgery once he is able to tolerate a full diet and pass a bowel movement. Of note, there was concern for left basilar pneumonia based on a chest x-ray; however, he never exhibited respiratory signs of pneumonia. Nevertheless, he completed a 5-day course of levofloxacin as an inpatient and reported no respiratory symptoms at discharge. On 10/09/2021, he was seen on rounds and deemed medically stable for discharge. He was discharged with instructions to schedule follow-up appointments with his PCP in 3-[address] Singh (General Surgery) in 2 weeks. He was given the opportunity to ask questions and reported no further questions. Furthermore, all questions were answered to the best of my ability. Today, I personally spent 20 minutes with Mr. Fields, of which greater than 50% of the time was spent in patient education, counseling, and coordination of care as described above. Vital Signs/Physical Exam: Temp Pulse Resp BP Pulse Ox 97.3 F 63 16 144/66 H 94 10/09/21 12:00 10/09/21 12:00 10/09/21 12:00 10/09/21 12:00 10/09/21 12:00 General: Alert, In no apparent distress, Oriented x3 HEENT: Atraumatic, Mucous membr. moist/pink Neck: Supple, Without JVD or thyroid abnormality Respiratory: Clear to auscultation bilaterally, Normal air movement Cardiovascular: No edema, Regular rate/rhythm, Normal S1 S2, No gallops, No rubs, No murmurs Gastrointestinal: Normal bowel sounds, Soft and benign, Non-distended, No rebound, No guarding, Tenderness (minimal near surgical site) Musculoskeletal: No clubbing, No swelling Integumentary: Other (mid-line abdominal surgical incision is clean, dry, and intact) Neurological: Normal speech, Normal tone, Normal affect Laboratory Data at Discharge: WBC 9.1 K/uL (4.3-10.9) D 10/09/21 03:03 Hgb 12.0 g/dL (13.6-17.9) L 10/09/21 03:03 Hct 35.9 % (39.6-49.0) L 10/09/21 03:03 Plt Count 264 K/uL (152-406) 10/09/21 03:03 PT 12.4 SECONDS (9.5-12.5) 10/05/21 02:00 INR 1.12 10/05/21 02:00 Sodium 137 mmol/L (136-145) 10/09/21 03:03 Potassium 3.6 mmol/L (3.5-5.1) 10/09/21 03:03 BUN 14 mg/dL (7-18) 10/09/21 03:03 Creatinine 1.15 mg/dL (0.55-1.3) 10/09/21 03:03 Glucose 114 mg/dL (74-106) H 10/09/21 03:03 Phosphorus 1.3 mg/dL (2.5-4.9) L - Phos was replaced this morning, repeat pending 10/09/21 03:03 Magnesium 1.9 mg/dL (1.8-2.4) 10/09/21 03:03 Total Bilirubin 0.5 mg/dL (0.2-1.0) 10/07/21 04:35 AST 29 U/L (15-37) 10/07/21 04:35 ALT 16 U/L (12-78) 10/07/21 04:35 Alkaline Phosphatase 58 U/L (45-117) 10/07/21 04:35 Lipase 201 U/L (73-393) 10/05/21 02:00 Home Medications: Clopidogrel Bisulfate [Plavix] 1 tab PO DAILY 10/05/21 Diphenhydramine HCl [Benadryl Allergy] 1 tab PO PRN 10/05/21 Docusate Sodium 100 mg PO BID 10/05/21 Fish Oil/Dha/Epa [Fish Oil 1,200 mg Fish Oil] 1,400 mg PO DAILY 10/05/21 Isosorbide Mononitrate [Isosorbide Mononitrate ER] 1 tab PO BID 10/05/21 Levothyroxine Sodium [Levothyroxine] 150 mg PO DAILY 10/05/21 Losartan Potassium [Cozaar] 1 tab PO BID 10/05/21 Nitroglycerin 0.4 mg PO PRN PRN 10/05/21 Honaker-3 Fatty Acids [Honaker-3] 900 mg PO DAILY 10/05/21 Rosuvastatin [Crestor*] 1 tab PO DAILY 10/05/21 Simethicone [Gas Relief] 125 mg PO PRN PRN 10/05/21 Ubidecarenone [Co Q-10] 1 cap PO DAILY 10/05/21 bisoproloL fumarate [Zebeta*] 1 tab PO DAILY 10/05/21 cilostazoL [Cilostazol] 1 tab PO BID 10/05/21 Physician Discharge Instructions: 1. Please schedule follow-up with PCP in 3-5 days - Will need to follow-up kidney cysts 2. Please schedule follow-up with Dr. Singh (General Surgery) in 2 weeks - Will need to follow-up hiatal and inguinal hernias Diet: [facility] Activity: No lifting more than 10 lbs Followup: Jose Singh MD [ACTIVE - CAN ADMIT] - 1-2 Weeks Vincent Paige MD [Primary Care Provider] - 2-3 Days
--- OUTSIDE RECORDS SUMMARY | 2021-10-23 06:12 | XMS REPORT | Continuity of Care Document ---
:1945 Author Organization [facility] t Address [address] [place] [address] Care Team Providers Name Role Phone Mary PICHARDO, Artur Primary Care Physician ARTUR HERNANDEZ Attending Clinician Unavailable Doctor Unassigned, Name Attending Clinician Unavailable Payers Payer Name Policy Type Policy Number Effective Date Expiration Date Erika PERAZA MANAGED [id number] 2021 MEDICARE PPO-FRANK 00:00:00 Problems Condition Condition Condition Status Onset Resolution Last Treating Co mments Source Name Details Category Date Date Treatment Clinician Date Leg edema Leg edema Disease Active Uni vers - ity of 00:00: [address] Acute Acute Disease Active Univers cholecysti cholecysti 08-22 it y of tis tis 00:00: [address] Branch Preop Preop Disease Active Univers cardiovasc cardiovasc -19 it y of ular exam [place] [facility] Ischemic Ischemic Disease Active Unive rs cardiomyop cardiomyop -19 it y of athy athy 00:00: [place] [address] Medical Branch Right Right Disease Active Overview: Univer s upper upper 5-19 Formattin ity of quadrant quadrant 00:00: g of this John as abdominal abdominal 00 note Medi tommie pain pain might be Branch different from the original. Added automatic ally from request for surgery [id number] Obesity Obesity Disease Active Univers (BMI (BMI 7-14 ity of 30-39.9) 30-39.9) 00:00: [place] 00 [facility] Hypothyroi Hypothyroi Disease Active U nivers d d 07-30 ity of 00:00: [place] 00 [facility] Essential Essential Disease Active Uni vers hypertensi hypertensi 07-30 it y of on on 00:00: [place] 00 [facility] Hyperchole Hyperchole Disease Active U nivers sterolemia sterolemia 07-30 it y of 00:00: [place] 00 Medical [facility] Asbestosis Asbestosis Disease Active U nivers 07-30 ity of 00:00: [place] 00 [facility] Coronary Coronary Disease Active Unive rs artery artery 07-30 ity of disease disease 00:00: [place] 00 Medical [facility] BPH BPH Disease Active Univers (benign (benign 07-30 ity of prostatic prostatic 00:[place] hypertroph hypertroph 00 Me dical y) y) Branch Allergies, Adverse Reactions, Alerts Allergy Allergy Status Severity Reaction(s) Onset Inactive Treating Comm ents Source Name Type Date Date Clinician PENICILL DRUG Active High Swelling Univer s IN INGREDI 07-30 ity of 00:00: [place] 00 [facility] Branch ASPIRIN DRUG Active Swelling Univers INGREDI 07-30 ity of 00:00: [place] 00 [facility] AZILSART DRUG Active Diarrhea Univer s AN INGREDI 07-30 ity of MEDOXOMI 00:00: [place] L 00 Medical Branch PITAVAST DRUG Active Other-Cmnt Univ ers ATIN INGREDI 07-30 ity of 00:00: [place] 00 Medical Branch METOPROL DRUG Active Other-Cmnt Univ ers OL INGREDI 07-30 ity of TARTRATE 00:00: [place] 00 Medical Branch NIACIN DRUG Active Swelling Univers INGREDI 07-30 ity of 00:00: [place] 00 Medical Branch PANTOPRA DRUG Active Other-Cmnt Univ ers ZOLE INGREDI 07-30 ity of 00:00: [place] 00 Medical Branch FENOFIBR DRUG Active Other-Cmnt Univ ers IC ACID 07-30 ity of (CHOLINE 00:00: [place] ) 00 Medical Branch Aspirin Propensi Active Swelling Of throat Un suresh ty to 07-30 ity of adverse 00:00: [place] reaction 00 Medical s Branch Azilsart Propensi Active Diarrhea Univ ers an ty to 07-30 ity of Medoxomi adverse 00:00: [place] l reaction 00 Medical s Branch Pitavast Propensi Active Other - See U nivers atin ty to comments 07-30 ity of adverse 00:00: [place] reaction 00 Medical s Branch Metoprol Propensi Active Other - See constipa t Univers ol ty to comments 07-30 ion ity of Tartrate adverse 00:00: [place] reaction 00 Medical s Branch Niacin Propensi Active Swelling Of hands Univ ers ty to 07-30 ity of adverse 00:00: [place] reaction 00 Medical s Branch Pantopra Propensi Active Other - See Bone greg n Univers zole ty to comments 07-30 hip and ity of adverse 00:00: back [place] reaction Medical s Branch Penicill Propensi Active Swelling Of throat U nivers in ty to 07-30 ity of adverse 00:00: [place] reaction 00 Medical s Branch Fenofibr Propensi Active Other - See Abdomina l Univers ic Acid ty to comments 07-30 pain ity of (Choline adverse 00:00: [place] ) reaction 00 Medical s Branch Social History Social Habit Start Date Stop Date Quantity Comments Source History SDPR University o f Alcohol Frequency [facility] edical Branch History [facility] University o f Alcohol Std [place] [facility] Drinks Branch History [facility] o f Alcohol Binge [place] [facility] al Branch Alcohol intake 2020-08-02 2020-08-02 0 /d University of 00:00:00 00:00:00 [facility] Tobacco use and 2015-07-31 2015-07-31 Former smokeless Uni versity of exposure 00:00:00 00:00:00 tobacco user [place] [facility]ica l Branch Alcohol Comment 2015-07-31 2015-07-31 occ Universit y of 00:00:00 00:00:00 [place] [facility] [place] History of 1993-07-30 Chews Tobacco University of tobacco use 00:00:00 [facility] Sex [birth year] Universit y of 00:00:00 00:00:00 [facility] Smoking Status Start Date Stop Date Source Ex-smoker 2015-07-31 00:00:00 2015-07-31 00:00:00 Universi ty of [facility] Medications Ordered Filled Start Stop Current Ordering Indication Dosage Frequency Signature Comments Components Source Medication Medication Date Date Medication? Clinician (SIG) Name Name LEVOTHYROXI Yes TAKE 1 Univ ers NE 150 mcg 5-17 TABLET BY ity of tablet 00:00: MOUTH [place] 00 EVERY DAY Medical IN THE Branch MORNING chlorzoxazo Yes [id number] 500mg Take 1 Univers ne 500 mg 4-30 tablet by ity o f tablet 00:00: mouth 3 [place] 00 (three) Medical times Branch daily as needed for Muscle Spasms. SIMETHICONE Yes 1{tbl} Take 1 Un suresh (GAS RELIEF 8-04 tablet by ity of ORAL) 11:21: mouth as [place] 20 needed. Medical Branch nitroglycer Yes .4mg Place 0.4 U nivers in 0.4 mg 8-04 mg under ity of sublingual 11:21: the [place] tablet 20 tongue. Medical Branch tamsulosin Yes [id number] .4mg Take 1 Univers 0.4 mg 24 8-04 9100 capsule by ity of hr capsule 00:00: mouth [place] 00 daily. Medical Branch losartan 50 Yes 50mg Take 50 mg Univers mg tablet 5-27 by mouth 2 ity of 00:00: (two) [place] 00 times Medical daily. Branch metoprolol Yes 50mg Take 50 mg U nivers succinate 6-18 by mouth 2 ity of XL (TOPROL 08:50: (two) [place] XL) 50 mg 19 times Medical 24 hr daily. Branch tablet coenzyme Yes 200mg Take 200 Univ ers Q10 (CO 6-18 mg by ity of Q-10) 100 08:50: mouth [place] mg softgel 19 daily. Medical Branch ISOSORBIDE Yes 30mg Take 30 mg U nivers ORAL 6-18 by mouth ity of 08:50: daily. [place] 19 Medical Branch PSYLLIUM Yes 1{dose} Take 1 Univ ers HUSK 6-18 Dose by ity of (METAMUCIL 08:50: mouth as [place] as ORAL) 19 needed. Medical Branch cilostazol Yes 50mg Take 50 mg U nivers 50 mg 4-07 by mouth 2 ity of tablet 00:00: (two) [place] 00 times Medical daily. Branch clopidogrel Yes 75mg Take 75 mg Univers (PLAVIX) 75 4-21 by mouth ity of mg tablet 00:00: daily. [place] 00 Medical Branch celecoxib Yes 200mg Take 200 Uni vers (CELEBREX) 4-14 mg by ity of 200 mg 00:00: mouth [place] capsule 00 daily. Medical Branch zolpidem Yes 5mg Take 5 mg Univ ers (AMBIEN) 5 4-14 by mouth ity o f mg tablet 00:00: at bedtime [place] 00 as needed. Medical Branch CRESTOR 10 Yes 10mg Take 10 mg U nivers mg tablet 4-04 by mouth ity of 00:00: daily. [address] Immunizations Ordered Filled Immunization Date Status Comments Sour e Immunization Name Name TDAP 2019-11-08 Completed University of 00:00:00 [facility] Influenza Virus 2015-12-12 Completed Universit y of Vaccine 00:00:00 [facility] Pneumococcal 13 2015-07-31 Completed Universit y of Conjugate, PCV13 00:00:00 [facility] dical (Prevnar 13) Branch Influenza Virus 2015-01-02 Completed Universit y of Vaccine 00:00:00 [facility] Zoster(Zostavax)(Sh 2012-06-29 Completed Unive rsity of ingles) 00:00:00 [facility] Pneumococcal 2010-04-27 Completed University o f Polysaccharide, 00:00:00 [facility] ical PPSV23 (PNEUMOVAX) Branch Procedures Procedure Date / Time Performed Performing Clinician Sour e EXTERNAL PROVIDER 2021-10-19 05:01:00 [facility]assigned, [facility] Branch Encounters Start End Encounter Admission Attending Care Care Encounter Source Date/Time Date/Time Type Type Clinicians Facility Department ID 2021-10-24 2021-10-24 Outpatient Junaid HERNANDEZ [facility] [id number] Univers 11:15:00 11:15:00 SY [id number] sebas [facility] 2021-10-24 2021-10-24 Outpatient Junaid HERNANDEZ [facility] [id number] Univers 11:15:00 11:15:00 SY mullen [facility] 2021-10-19 2021-10-19 Orders Doctor ESTRADA [id number] Univers 00:00:00 00:00:00 Only Unassigned, ANGELINA [id number] ity of [facility] [id number] [place] as [id number] [address] 2020-08-03 2020-08-03 Outpatient HENRIETTAVIDHYAROSA [facility] [id number] Univers 16:30:00 16:30:00 SY [id number] ity [facility] 2020-08-02 2020-08-02 Outpatient R [facility] [id number] Univers 17:00:00 17:00:00 [id number] ity [facility] 2020-08-02 2020-08-02 Outpatient R [facility] [id number] Univers 17:00:00 17:00:00 ity [facility] 2019-11-23 2019-11-23 Outpatient R [facility] [id number] Univers 13:00:00 13:00:00 [id number] ity [facility] 2019-11-08 2019-11-08 [facility] [id number] Univers 11:15:00 [facility]:15[facility] 2019-11-08 [facility] [id number] Univers 11:15:00 11:15:00 SY [facility] Results This patient has no known results.
== END 2021-10-09 16:04 | disposition home or self-care (01) | DRG 329 ==
LOC: ER 00:30 → ERHOLD 07:41 → 4TH 15:36 → 2ND 10-06 21:16
PROVIDERS: ADMIT Hospitalist; ATTEND Internal Medicine
PROC: 0DN80ZZ Release Small Intestine, Open Approach (ICD-10-PCS; 2021-10-05)
PROC: 06L Lower Veins, Occlusion (ICD-10-PCS; 2021-10-05)
PROC: 0WQF0ZZ Repair Abdominal Wall, Open Approach (ICD-10-PCS; 2021-10-05)
PROC: 0DTF0ZZ Resection of Right Large Intestine, Open Approach (ICD-10-PCS; principal; 2021-10-05 11:45)
DX: K56.2 Volvulus (principal); J18.9 Pneumonia, unspecified organism; N17.9 Acute kidney failure, unspecified; I25.10 Atherosclerotic heart disease of native coronary artery without angina pectoris; I73.9 Peripheral vascular disease, unspecified; E78.5 Hyperlipidemia, unspecified; E03.9 Hypothyroidism, unspecified; I16.0 Hypertensive urgency; N40.0 Benign prostatic hyperplasia without lower urinary tract symptoms; E11.9 Type 2 diabetes mellitus without complications; I77.89 Other specified disorders of arteries and arterioles; I25.2 Old myocardial infarction; Z95.5 Presence of coronary angioplasty implant and graft; Z95.1 Presence of aortocoronary bypass graft; Z88.0 Allergy status to penicillin; Z88.6 Allergy status to analgesic agent; Z87.891 Personal history of nicotine dependence; Z90.49 Acquired absence of other specified parts of digestive tract; Z20.822 Contact with and (suspected) exposure to COVID-19
CPT/HCPCS: 36415; 71045; 74018; 74176; 80048; 80053; 80076; 81003; 82947; 83690; 83735; 83880; 84100; 84484; 85025; 85610; 86850; 86900; 86901; 88305; 88307; 93005; 94010; 94760; 97110; 97116; 97161; 97530; 99284; J0330; J0744; J1100; J1170; J1650; J2185; J2405; J2704; J2710; J3010; J3475; J3490; J7030; J7040; J7120; U0003

== ENCOUNTER 2021-12-30 06:46 | Day surgery (SDC) | payer OTHER ==
[2021-12-30] MEDS ORDERED: Ringers Lactate 1,000 ML IV ONE (07:13)
[2021-12-30] MEDS ORDERED: propofoL 200 MG/20 ML VIAL IV ONE (08:09)
--- NOTE | 2021-12-30 08:41 | ENDO RPT ---
[address], [address] COLONOSCOPY PROCEDURE REPORT EXAM DATE: 12/30/2021 PATIENT NAME: Chantal Fields MR #: [id number] BIRTHDATE: 1945 ATTENDING: Jose Singh DR STATUS: outpatient TAG WRITER: Cande Bateman RN and Kign Dolan [facility] INDICATIONS: The patient is a 76 yr old Male here for a colonoscopy due to s/p Partial Colectomy for Cecal Volvulous PROCEDURE PERFORMED: Colonoscopy with biopsy - cold polypectomy MEDICATIONS: Per Anesthesia. ESTIMATED BLOOD LOSS: None CONSENT: The patient understands the risks and benefits of the procedure and understands that these risks include, but are not limited to: sedation, allergic reaction, infection, perforation and/or bleeding. Alternative means of evaluation and treatment include, among others: physical exam, x-rays, and/or surgical intervention. The patient elects to proceed with this endoscopic procedure. DESCRIPTION OF PROCEDURE: During intra-op preparation period all mechanical medical equipment was checked for proper function. Hand hygiene and appropriate measures for infection prevention was taken. Procedure, possible complications, alternatives including, but not limited to possibility of bleeding, perforation, tear, infection, sepsis, need for surgery, need for blood transfusion, were explained to the patient. After the risks, benefits and alternatives of the procedure were thoroughly explained, Informed consent was verified, confirmed and timeout was successfully executed by the treatment team. The patient was placed in the left lateral position. A digital rectal exam was performed and revealed internal hemorrhoids. After appropriate level of anesthesia, the scope was passed. The EC-[id number] ([id number]) endoscope was introduced through the anus and advanced to the ileocolic anastamosis. The quality of the prep was inadequate. The instrument was then slowly withdrawn as the colon was fully examined. Scope withdrawal time was 12 minutes. COLON FINDINGS: A polypoid shaped and smooth semi-pedunculated polyp measuring 5 mm in size was found at the hepatic flexure. A polypectomy was performed using snare cautery. The resection was complete, the polyp tissue was completely retrieved and sent to histology. A small patch of abnormal mucosa was found @ the anastamosis. The mucosa was congested and erythematous. A biopsy of the lesion was performed using cold forceps. Moderate sized internal hemorrhoids were found. There was moderate diverticulosis noted throughout the entire examined colon with associated colonic spasm and muscular hypertrophy. No bleeding was noted from the diverticulosis. Retroflexed views revealed medium hemorrhoids. The scope was then completely withdrawn from the patient and the procedure terminated. ADVERSE EVENTS: There were no complications. IMPRESSIONS: 1. Semi-pedunculated polyp was found at the hepatic flexure; polypectomy was performed using snare cautery 2. Small abnormal mucosa was found; The mucosa was congested and erythematous; biopsy of the lesion was performed using cold forceps 3. Moderate sized internal hemorrhoids RECOMMENDATIONS: 1. avoid NSAIDS for 2 weeks 2. await biopsy results 3. follow-up: office 2 week(s) 4. Monitor for any evidence of rectal bleeding. 5. increase dietary water 6. low fiber / diverticular diet 7. Repeat Colonoscopy with 2 day prep due to inadequate prep RECALL: Return in 2 week(s) for Colonoscopy. Inadequate Prep Jose Singh DR eSigned: Jose Singh DR 12/30/2021 8:41 AM cc: CPT CODES: ICD9 CODES: PATIENT NAME: Chantal Fields MR#: [id number]
[2021-12-30 09:31] VITALS: BP 126/60; TEMP 97.4; O2SAT 98
== END 2021-12-30 09:15 | disposition home or self-care (01) ==
LOC: PRE 06:46 → OR 09:15
PROVIDERS: ATTEND Surgery
PROC: 0DBC8ZX Excision of Ileocecal Valve, Via Natural or Artificial Opening Endoscopic, Diagnostic (ICD-10-PCS; 2021-12-30)
PROC: 0DBL8ZX Excision of Transverse Colon, Via Natural or Artificial Opening Endoscopic, Diagnostic (ICD-10-PCS; principal; 2021-12-30 08:00)
DX: Z09 Encounter for follow-up examination after completed treatment for conditions other than malignant neoplasm (principal); D12.3 Benign neoplasm of transverse colon; I25.10 Atherosclerotic heart disease of native coronary artery without angina pectoris; I10 Essential (primary) hypertension; E78.5 Hyperlipidemia, unspecified; E78.00 Pure hypercholesterolemia, unspecified; Z87.891 Personal history of nicotine dependence; Z90.49 Acquired absence of other specified parts of digestive tract; Z98.890 Other specified postprocedural states; K64.8 Other hemorrhoids
CPT/HCPCS: 45385; 45380; 88305; J2704; J7120